=== PATIENT | male | born 1990 | race Caucasian/White ===

== ENCOUNTER 2019-07-30 07:27 | Emergency (ER) | payer OTHER ==
[~2019-07-30] VITALS: Ht 170.2 cm; Wt 96.6 kg
[2019-07-30 07:39] VITALS: Ht 170.2 cm; Wt 96.6 kg
[2019-07-30 09:15] VITALS: BP 130/75
== END 2019-07-30 09:15 | disposition home or self-care (01) ==
LOC: ED 07:27
DX: S05.01XA Injury of conjunctiva and corneal abrasion without foreign body, right eye, initial encounter (principal); X58.XXXA Exposure to other specified factors, initial encounter; Y93.89 Activity, other specified; Y92.89 Other specified places as the place of occurrence of the external cause; Y99.8 Other external cause status
CPT/HCPCS: 90715